=== PATIENT | female | born 1975 | race Caucasian/White ===

== ENCOUNTER 2018-09-06 01:31 | Emergency (ER) | payer BC ==
--- NOTE | 2018-09-06 01:52 | ED ---
HPI Chest Pain - HPI Summary HPI Summary: This pt is a 43 y/o female presenting to [facility] c/o chest discomfort for the past 2-3 days. Pt states that about 1 hour ago around 01:00 today her son woke her up and pt felt nauseous and palpitations (characterized as fast). She notes she also felt weak in general. She describes her chest discomfort as light pressure and is more constant now. Denies fever, SOB, dizziness. Pt does not take aspirin. PMHx includes HTN, high cholesterol, GERD. Her medications are Lisinopril, Metoprolol, Omeprazole, Atorvastatin. He has had a holter monitor in the past. Her last stress test was done over 2 years ago. - History of Current Complaint Chief Complaint: EDChestWallPain Time Seen by Provider: 09/06/18 01:50 Hx Obtained From: Patient Onset/Duration: Started Days Ago, Still Present Timing: Lasting Days Initial Severity: Moderate Current Severity: None Pain Intensity: 0 Pain Scale Used: 0-10 Numeric Chest Pain Location: Diffuse Chest Pain Radiates: No Character: Pressure/Squeezing - light pressure Aggravating Factor(s): Nothing Alleviating Factor(s): Nothing Associated Signs and Symptoms: Positive: Chest Pain, Weakness, Nausea, Palpitations. Negative: Dizziness, Shortness of Breath, Fever, Chills, Vomiting - Allergy/Home Medications Allergies/Adverse Reactions: Allergies Allergy/AdvReac Type Severity Reaction Status Date / Time cephalexin Allergy Unknown Verified 09/06/18 01:50 Reaction Details Home Medications: Home Medications Atorvastatin* 20 mg PO DAILY 09/06/18 [History Confirmed 09/06/18] Lisinopril 20 mg PO DAILY 09/06/18 [History Confirmed 09/06/18] Metoprolol Succinate XL TAB* 100 mg PO DAILY 09/06/18 [History Confirmed ] Omeprazole 20 mg PO DAILY 09/06/18 [History Confirmed 09/06/18] PMH/Surg Hx/FS Hx/Imm Hx Endocrine/Hematology History: Denies: Hx Diabetes Cardiovascular History: Reports: Hx Hypercholesterolemia, Hx Hypertension GI History: Reports: Hx Gastroesophageal Reflux Disease Neurological History: Denies: Other Neuro Impairments/Disorders Infectious Disease History: No Infectious Disease History: Denies: Traveled Outside the [place] in Last 30 Days - Family History Known Family History: Positive: Hypertension Family History: Obesity. Gout - Social History Alcohol Use: Occasionally Substance Use Type: Reports: None Smoking Status (MU): Never Smoked Tobacco Review of Systems Negative: Fever, Chills Positive: Palpitations, Chest Pain Negative: Shortness Of Breath Positive: Nausea. Negative: Vomiting Neurological: Other - NEG: dizziness Positive: Weakness All Other Systems Reviewed And Are Negative: Yes Physical Exam - Summary Physical Exam Summary: VITAL SIGNS: Reviewed. GENERAL: Patient is a well-developed and nourished female who is lying comfortable in the stretcher. Patient is not in any acute respiratory distress. HEAD AND FACE: No signs of trauma. No ecchymosis, hematomas or skull depressions. No sinus tenderness. EYES: PERRLA, EOMI x 2, No injected conjunctiva, no nystagmus. EARS: Hearing grossly intact. Ear canals and tympanic membranes are within normal limits. MOUTH: Oropharynx within normal limits. NECK: Supple, trachea is midline, no adenopathy, no JVD, no carotid bruit, no c- spine tenderness, neck with full ROM. CHEST: Symmetric, no tenderness at palpation LUNGS: Clear to auscultation bilaterally. No wheezing or crackles. CVS: Regular rate and rhythm, S1 and S2 present, no murmurs or gallops appreciated. ABDOMEN: Soft, non-tender. No signs of distention. No rebound no guarding, and no masses palpated. Bowel sounds are normal. EXTREMITIES: FROM in all major joints, no edema, no cyanosis or clubbing. NEURO: Alert and oriented x 3. No acute neurological deficits. Speech is normal and follows commands. SKIN: Dry and warm Triage Information Reviewed: Yes Vital Signs On Initial Exam: Initial Vitals Temp Pulse Resp BP Pulse Ox 97.3 F 86 22 157/96 97 09/06/18 01:32 09/06/18 01:32 09/06/18 01:32 09/06/18 01:32 09/06/18 01:32 Vital Signs Reviewed: Yes Diagnostics - Vital Signs Vital Signs Temp Pulse Resp BP Pulse Ox 09/06/18 01:32 97.3 F 86 22 157/96 97 - Laboratory Result Diagrams: 09/06/18 02:08 09/06/18 02:08 Lab Statement: Any lab studies that have been ordered have been reviewed, and results considered in the medical decision making process. - Radiology Chest XR Radiology Interpretation Completed By: ED Physician Summary of Radiographic Findings: No acute process. Pending official radiology report. - EKG 01:45 Cardiac Rate: NL - at 79 bpm EKG Rhythm: Sinus Rhythm Summary of EKG Findings: Normal axis. Normal interval. No ischemic changes. Chest Pain Course/Dx - Course Assessment/Plan: Pt is a 43 y/o female, with hx of HTN, high cholesterol, who presents to the ED for chest discomfort for the past 2-3 days. Pt states that about 1 hour ago around 01:00 today her son woke her up and pt felt nauseous and palpitations (characterized as fast). She notes she also felt weak in general. She describes her chest discomfort as light pressure and is more constant now. Chest XR is negative for an acute process. Patient has a normal EKG. She had two troponins and both are negative. She will be discharged home with follow up from her PCP in 2-3 days. Pt was recommended to have a cardiac stress test as an outpatient. Return to ED precautions were given. - Diagnoses Provider Diagnoses: Chest pain Discharge - Sign-Out/Discharge Documenting (check all that apply): Patient Departure - Discharge home Patient Received Moderate/Deep Sedation with Procedure: No - Discharge Plan Condition: Stable Disposition: HOME Patient Education Materials: Chest Pain (ED) Referrals: Lesly Hui NP [Primary Care Provider] - Additional Instructions: Recommend a cardiac stress test as an outpatient. Follow up with your primary care provider in 2-3 days. RETURN TO THE ED IMMEDIATELY FOR WORSENING OR CONCERNING SYMPTOMS. - Attestation Statements Document Initiated by Scribe: Yes Documenting Scribe: Dot Blount Provider For Whom Jenny is Documenting (Include Credential): Selvin Espinoza MD Scribe Attestation: Dot Andrews, derecked for Selvin Espinoza MD on 09/06/18 at 0525. Status of Scribe Document: Ready
[2018-09-06] MEDS ORDERED: Aspirin 81 mg CHEW TAB* 81 MG TAB.CHEW PO ONE (01:59)
[2018-09-06 02:15] LABS: ABS Basophils 0.1 10^3/ul (0-0.2); ABS Eosinophils 0.1 10^3/ul (0-0.6); ABS Lymphocytes 3.7 10^3/ul (1.0-4.8); ABS Monocytes 0.5 10^3/ul (0-0.8); ABS Neutrophils 5.4 10^3/ul (1.5-7.7); Eosinophil % 1.2 %; Hematocrit 39 % (35-47); Hemoglobin 13.3 g/dL (12.0-16.0); Lymphocyte % 37.3 %; Mean Corpuscular HGB Conc 35 g/dL (31-36); Mean Corpuscular Hemoglobin 28 pg (27-31); Mean Corpuscular Volume 81 fL (80-97); Mean Platelet Volume 8.6 fL (7.4-10.4); Nucleated Red Blood Cells % 0.1; Platelet Count 281 10^3/uL (150-450); Red Blood Count 4.78 10^6 /uL (3.70-4.87); Red Cell Distribution Width 15 % (10-15); White Blood Count 9.8 10^3/uL (3.5-10.8)
[2018-09-06 02:22] LABS: Activated Partial Thrombo Time 39.9 seconds (26.0-38.0); INR 1.03 (0.82-1.09)
[2018-09-06 02:33] LABS: Albumin/Globulin Ratio 1.1 (1-3); BUN/Creatinine Ratio 16.4 (8-20); Calcium 9.8 mg/dL (8.6-10.3); EGFR African American 106.3 (>60); EGFR Non-African American 87.9 (>60); Globulin 3.6 g/dL (2-4); Magnesium 1.8 mg/dL (1.9-2.7); Potassium 3.7 mmol/L (3.5-5.0); Total Bilirubin 0.4 mg/dL (0.2-1.0); Total Protein 7.6 g/dL (6.4-8.9)
[2018-09-06 05:31] VITALS: BP 101/62
[2018-09-06 13:03] LABS: TSH (Thyroid Stimulating Horm) 2.18 mcIU/mL (0.34-5.60)
== END 2018-09-06 05:30 | disposition home or self-care (01) ==
LOC: ED 01:31
DX: R07.9 Chest pain, unspecified (principal); I10 Essential (primary) hypertension; Z79.899 Other long term (current) drug therapy
CPT/HCPCS: 36415; 71045; 80053; 83735; 84443; 84484; 85025; 85610; 85730; 93005; 99283; A9270-GY